=== PATIENT | male | born 1980 | race African-American/Black ===

== ENCOUNTER 2024-04-03 19:14 | Emergency (ER) | payer OTHER, SELFPAY ==
[2024-04-03 19:18] VITALS: BP 134/81
[2024-04-03 20:09] LABS: COVID-19 Antigen Negative (Negative)
--- NOTE | 2024-04-03 21:44 | ED.GENMED ---
History of Present Illness
General
Chief Complaint: Cold/Flu/URI Symptoms
Time Seen by Provider: 04/03/24 21:06
History of Present Illness
History of Present Illness:
44-year-old male no past medical history presenting for fever, body aches, cough starting 2 days ago. Patient denies chest pain or shortness of breath. Patient states that his son has similar symptoms. Otherwise no nausea vomiting or diarrhea.
Phy Exam
Physical Exam
Physical Exam:
General: Alert, no acute distress
Head: NCAT
Eyes: clear conjunctiva
Neck: supple
Cardiac: regular rate and rhythm, no murmur
Lungs: clear to auscultation bilaterally. No wheezes, rales, or rhonchi. Speaking full unlabored sentences. No respiratory distress.
Abdomen: soft, nondistended nontender. No rebound or guarding.
MSK: no lower extremity edema bilaterally. No deformity
Skin: warm, dry
Neuro: Alert and oriented x3. no focal deficits
Course
Orders/Labs/Results
Orders:
Orders
04/03/24 19:36
COVID-19 Antigen Urgent
Source: Nasal Swab
Influenza A+B Rapid Molecular Urgent
DAVID Source: Nasal Swab
Specimen Description:
04/03/24 21:47
Ibuprofen [Motrin] 600 mg PO NOW STA
04/03/24 21:48
Ibuprofen [Motrin] 600 mg .ROUTE .STK-MED ONE
Vital Signs
Initial and Last Documented VS:
Initial Vital Signs
Temp Pulse Resp BP Pulse Ox
100.6 F H 104 16 134/81 98
04/03/24 19:18 04/03/24 19:18 04/03/24 19:18 04/03/24 19:18 04/03/24 19:18
Last Documented Vital Signs
Temp Pulse Resp BP Pulse Ox
100.6 F H 74 16 123/74 98
04/03/24 19:18 04/03/24 22:06 04/03/24 22:06 04/03/24 22:06 04/03/24 22:06
MDM/Problems Addressed
MDM/Problems Addressed:
44-year-old male presenting with fever, cough, diffuse bodyaches for the past 2 days. Patient is febrile to 100.6 here in the ER. Patient influenza positive. Otherwise well-appearing in no acute respiratory distress. Discussed results with
patient at bedside. Stable for discharge with PCP follow-up. Advised to drink plenty of water, take Tylenol/Motrin as needed for body aches/fever. Patient expressed verbal understanding.
*Critical Care Note
Total Time (30-74mins, 75-104mins- exclusive of procedures): Not Applicable
ED Attending Note
-
Portions of this chart may have been created with voice recognition software.� Occasional wrong word or��sound alike� substitutions may have occurred due to the inherent limitations of voice recognition software.
Discharge Plan
Departure
Patient Disposition: Home (Routine Discharge)
Date of Disposition: 04/03/24
Time of Disposition: 21:47
Patient with high blood pressure during this ER visit?: Yes
Discharge Problem:
Influenza
Instructions: Flu in adults - ED discharge instructions, BLOOD PRESSURE
Referrals:
NONE,* [Family Provider] -
Activity Restrictions/Additional Instructions:
Take Tylenol 975 mg every 6 hours and/or ibuprofen 800 mg every 8 hours if he is needed for pain
Drink water, stay hydrated
Follow-up with primary care doctor in 1 to 2 days
Return to the emergency department for chest pain, shortness of breath or new/persistent
Interventions
Interventions:
*Risk Screen - Suicide Last Done: 04/03/24 19:18
*General Assessment Last Done: 04/03/24 22:05
*Neglect/Abuse Screening Last Done: 04/03/24 19:18
ED- Fall Risk Assessment Last Done: 04/03/24 22:06
*ED COVID-19 Vaccine History Last Done: 04/03/24 22:05
*Nursing Disposition Last Done: 04/03/24 22:06
ED- Pulmonary Assessment Last Done: 04/03/24 22:05
Discharge Date and Time
Discharge Date/Time: 04/03/24 22:07
Print Language: ESTONIAN
[2024-04-03] MEDS: MOTRIN 600 MG PO (21:49)
[2024-04-03 22:06] VITALS: BP 123/74
== END 2024-04-03 22:07 | disposition home or self-care (01) ==
LOC: EMR 19:14
PROVIDERS: Emergency Medicine; EMERGENCY PHYSICIAN Emergency Medicine
DX: J11.1 Influenza due to unidentified influenza virus with other respiratory manifestations (principal)
CPT/HCPCS: 99282; 87502; 87811